=== PATIENT | male | born 1985 | race American Indian/Alaskan Native ===

== ENCOUNTER 2017-08-27 11:40 | Emergency (ER) | payer MEDICARE ==
[2017-08-27 12:04] VITALS: BP 128/80
[2017-08-27] MEDS ORDERED: MOTRIN PO ONE (15:00)
--- NOTE | 2017-08-27 15:00 | Emergency Department Report ---
HPI - General Chief Complaint: Dental/Oral Time Seen by Provider: 08/27/17 14:43 - HPI HPI: Patient here complaining that he has toothache to upper right front tooth. He said his right jaw is painful and this is single and on for 3 days. Patient is deaf so communication in via written communication. Patient said this pain to his left jaw is 6 out of 10 [address] a cane. Worse with eating and and talking. He said he does not have a dentist. Patient said he is taking [id number] medication but is not helping. Denies any sore throat or difficulty swallowing. Denies any fever or chills. Denies any cough, nasal congestion or runny nose. Denies any chest pain or shortness of breath. Pain is localized to upper right tooth. ED Past Medical Hx - Past Medical History Previous Medical History?: No - Surgical History Past Surgical History?: No - Family History Family history: no significant - Social History Smoking Status: Current Every Day Smoker Substance Use Type: Alcohol, Non Opiate Pain - Medications Home Medications: Home Medications Medication Instructions Recorded Confirmed Last Taken Type Acetaminophen/Codeine [Tylenol 1 tab PO Q6H PRN 4 Days #16 tab 08/27/17 Unknown Rx /Codeine # 3 tab] Ibuprofen [Motrin] 600 mg PO Q8H PRN 7 Days #21 tablet 08/27/17 Unknown Rx Penicillin V Potassium 500 mg PO Q8H 10 Days #30 tablet 08/27/17 Unknown Rx ED Review of Systems ROS: Stated complaint: RIGHT JAW PAIN Other details as noted in HPI Comment: All other systems reviewed and negative Constitutional: no symptoms reported ENT: denies: ear pain, throat pain, dental pain, epistaxis, congestion Respiratory: no symptoms reported Cardiovascular: denies: chest pain, palpitations, dyspnea on exertion, edema, syncope, paroxysmal nocturnal dyspnea Gastrointestinal: denies: abdominal pain, nausea, vomiting Musculoskeletal: denies: back pain, joint swelling, arthralgia, myalgia Skin: denies: rash Neurological: denies: headache, weakness, numbness, paresthesias, confusion, abnormal gait, vertigo Physical Exam - Physical Exam Vital Signs: Vital Signs 08/27/17 11:59 Temperature 98.4 F Pulse Rate 64 Respiratory 20 Rate Blood Pressure 128/80 O2 Sat by Pulse 100 Oximetry General: 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 Written communication during visit. Physical Exam: Head: Normocephalic, atraumatic, no abrasion, no bruising and no contusion. Nose: Nasal mucosa normal without any drainage. maxillary and frontal sinus is nontender to palpate Ears: Refugio TM pearly mcduffie, bilateral EAC without any redness swelling or drainage. No mastoid bone tenderness Mouth: Moist, no pharyngeal exudate or erythema. Uvula is midline and oral airways patent. Patient with gingival inflammation, widespread dental caries, no indurated or cellulitic area noted and oral mucosa and no facial swelling or tenderness. Patient with tenderness around tooth #5,6 and 7 and patient with cavities around these teeth. Tongue is normal Eyes: Biateral pupils equal and reactive to light, bilateral EOM intact.. Bilateral conjunctival and sclera without injection, normal accommodation. Neck: Supple, No Cervical adenopathy, full range of motion and no C-spine tenderness. No swelling or tracheal deviation normal reflexes Cardiovascular: S1, S2. Regular rate and rhythm. No murmur. Capillary refill is less then 3 seconds. Lungs: Clear to auscultate bilaterally. Wheezes in.No rhonchi, or rales. No chest wall tenderness. No use of accessory muscle. In no increased work of breathing. MSK: Strength 5/5 in all extremities. No joint deformity or crepitus. Normal inspection. Full range of motion to all extremities. Abdomen: Non-tender to palpate in all quadrants, no guarding or rebound tenderness, positive bowel sounds in all quadrants. No CVA tenderness. No hernia, bruit or mass. No rigidity or distention. Extremities: No clubbing, cyanosis or edema. +2 pulses. No neurovascular compromise Skin: Clean, dry and intact. No rash or lesions. Psych: Normal mood and behavior positive ED Course Vital Signs 08/27/17 11:59 Temperature 98.4 F Pulse Rate 64 Respiratory 20 Rate Blood Pressure 128/80 O2 Sat by Pulse 100 Oximetry - Reevaluation(s) Reevaluation #1: 08/27/17 16:22 Given Motrin 800 mg in the emergency room for toothache. ED Medical Decision Making - Medical Decision Making ED course: Patient here reports that he is having toothache to his right upper tooth and he is having right facial pain. Physical findings for gingivitis, dental caries and dental tenderness around tooth #5,6 and 7. No obvious cellulitis or abscess noted. A written communication, I discussed the patient that he has multiple dental caries, gingivitis which is an infection of his gums and that he will need to follow up with a dentist for further evaluation and treatment. I communicated with him that I'll put him on penicillin, Tylenol No. 3 and Motrin for tooth ache and also gingivitis and that he needs to call [facility] tomorrow to schedule an appointment for follow-up. I communicated with patient that he does not need to drive or operate heavy machinery while taking Tylenol No. 3 as these medication causes drowsiness. I also communicated with him that it is very important that he takes all his antibiotic and that he follows up with a dentist as is gum infection can cause the airway in his mouth to be compromised and lead to intubation and infection in his blood. Severe written communication, patient voiced understanding of discharge instruction and treatment plan and need to follow-up. Patient discharged from the emergency room in stable condition with prescription for penicillin V, Tylenol #3 and Motrin. Critical care attestation.: If time is entered above; I have spent that time in minutes in the direct care of this critically ill patient, excluding procedure time. ED Disposition Clinical Impression: Gingivitis, Dental caries, Tooth ache Disposition: TO HOME OR SELFCARE Is pt being admited?: No Does the pt Need Aspirin: No Condition: Stable Instructions: Dental Caries (ED), Toothache (ED), Gingivitis (ED) Additional Instructions: Refer to discharge instruction paperwork for the number and address of [facility]. Please call tomorrow to schedule an appointment Start taking an penicillin today as instructed You can take Tylenol No. 3 for severe pain but please do not drive or operate heavy machinery while taking this medication as it causes drowsiness Take Motrin as needed and as this instructed for pain Prescriptions: Acetaminophen/Codeine [Tylenol /Codeine # 3 tab] 1 tab PO Q6H PRN 4 Days #16 tab PRN Reason: Toothache Ibuprofen [Motrin] 600 mg PO Q8H PRN 7 Days #21 tablet PRN Reason: Pain Penicillin V Potassium 500 mg PO Q8H 10 Days #30 tablet Referrals: PRIMARY CAREMD [Primary Care Provider] - 08/29/17 [facility] [Outside] - 08/29/17 Forms: Work/School Release Form(ED)
== END 2017-08-27 16:49 | disposition home or self-care (01) ==
LOC: ED 11:40
DX: K05.10 Chronic gingivitis, plaque induced (principal); K02.9 Dental caries, unspecified; F17.200 Nicotine dependence, unspecified, uncomplicated
CPT/HCPCS: 99282